=== PATIENT | female | born 1960 | race Caucasian/White ===

== ENCOUNTER 2018-12-01 16:29 | Emergency (ER) | payer BC, OTHER ==
[~2018-12-01] VITALS: Ht 157.5 cm; Wt 87.1 kg
--- OUTSIDE RECORDS SUMMARY | 2018-12-01 16:32 | XMS REPORT | Encounter Summary ---
Author Organization Unknown Address [address] [place] [address] Phone [phone] Care Team Providers Care Clinical Nursing Instructor Name Role Phone Bianca Witt 3 [phone] Reason for Visit Medical Complaint Instructions 1. Urinary tract infectious disease urinalysis, dipstick cefuroxime axetil 500 mg tablet phenazopyridine 200 mg tablet culture, urine Discussion Note follow up with PCP if symptoms continue or worsen Patient educational handouts: No information available. Plan of Care Reminders Provider Appointments None recorded. Lab Urinalysis, Dipstick 02/17/2017 [facility] Culture, Urine 02/17/2017 [facility] Referral None recorded. Procedures None recorded. Surgeries None recorded. Imaging None recorded. Medications Name Start Date acetaminophen 300 mg-codeine 30 mg tablet acetaminophen 300 mg-codeine 60 mg tablet TK 1 TO 2 TS PO Q 4 H PRN P. Advil alprazolam 0.25 mg tablet atorvastatin 10 mg tablet TK 1 T PO ONCE A DAY azithromycin 500 mg tablet TK 1 T PO QD Benicar 20 mg tablet Benicar 40 mg tablet TK 1 T PO QD bisoprolol fumarate bisoprolol fumarate 5 mg tablet TK ONE T PO QAM AND 2 TS HS carisoprodol 350 mg tablet TK 1 T PO TID PRN cefuroxime axetil 500 mg tablet Take 1 tablet every 12 hours by oral route for 7 days. chlorhexidine gluconate 0.12 % mouthwash RINSE 1/2 OUNCE FOR 30 SECONDS IN THE MORNING RINSE 1/2 OUNCE FOR 30 SECONDS IN THE EVENING ciprofloxacin 500 mg tablet clindamycin 300 mg capsule clonidine HCl 0.1 mg tablet TK 1 T PO Q 4 H PRN Cortisporin-TC 3.3 mg-3 mg-10 mg-0.5 mg/mL ear drops,suspension dicyclomine 20 mg tablet etodolac 500 mg tablet fluconazole 150 mg tablet fluticasone 50 mcg/actuation nasal spray,suspension hydrocodone 5 mg-acetaminophen 325 mg tablet TK 1 T PO Q 4 H PRN P hydrocodone 7.5 mg-acetaminophen 325 mg tablet TK 1 T PO Q 4 H PRN P hyoscyamine 0.125 mg sublingual tablet ibuprofen 800 mg tablet ketoconazole 2 % topical cream ANAID TO IRRITATED SKIN BID UNTIL RESOLVED levothyroxine 50 mcg tablet TK 1 T PO D Lidocaine Viscous 2 % mucosal solution U 2 KRYSTIAN TO RINSE AROUND ORAL CAVITY PRN TO RELIEVE PAIN SPIT OUT Lipitor meloxicam 15 mg tablet TK 1 T PO D methylprednisolone 4 mg tablet methylprednisolone 4 mg tablets in a dose pack TK UTD metronidazole 250 mg tablet TK 1 T PO TID metronidazole 500 mg tablet TK 1 T PO TID mupirocin 2 % topical ointment ANAID TO AREAS TID UTD TILL RESOLVES Nexium Nexium 40 mg capsule,delayed release TK ONE C PO ONCE A DAY. nitrofurantoin monohydrate/macrocrystals 100 mg capsule TK 1 C PO BID Q TWELVE H ondansetron 4 mg disintegrating tablet ondansetron 8 mg disintegrating tablet DIS ONE T PO Q 8 H PRN FOR NAUSEA phenazopyridine 100 mg tablet TK 2 TS PO TID FOR 3 DAYS PRN phenazopyridine 200 mg tablet Take 1 tablet 3 times a day by oral route as needed. sertraline 50 mg tablet Suprep Bowel Prep Kit 17.5 gram-3.13 gram-1.6 gram oral solution Synthroid terconazole 0.8 % vaginal cream tramadol 50 mg tablet TK 1 T PO Q 4 H PRN P FOR MILD TO MODERATE PAIN Vicodin 5 mg-300 mg tablet TK 1 T PO Q 4 H PRF PAIN zolpidem 10 mg tablet TK 1 T PO ONCE D HS Medications Administered None recorded. Vitals Height Weight BMI Blood Pressure 5 ft 2 in 186 lbs 34 130/80 Lab Results Date Name Specimen Result Interpretation Description Value Range Status Address Urinalysis, Dipstick Color : Yellow [facility]: [address] [place] [address] Clarity : Cloudy [facility]: [address] [place] [address] Leukocytes : Large [facility]: [address] [place] [address] Nitrites : Negative [facility]: [address] [place] [address] Urobilinogen : Normal [facility]: [address] [place] [address] Protein : Trace [facility]: [address] [place] [address] Ph : [phone] [facility]: [address] [place] [address] Blood : Hemolyzed Trace [facility]: [facility] Specific [place] : 1.005 [facility]: [facility] Ketones : Negative [facility]: [facility] Bilirubin : Negative [facility]: [facility] Glucose Negative [facility]: [facility] Allergies Code Code System Name Reaction Severity Onset Penicillins Anaphylaxis Problems Name Status Onset Date Source Dysfunction of Eustachian Tube Active Encounter Acute Sinusitis Active Encounter Acute Upper Respiratory Infection Active Encounter Allergic Rhinitis Active Encounter Urinary Tract Infectious Disease Active Encounter Right Upper Quadrant Pain Active Encounter Procedures Date Name Performed by 10/28/1989 Delivery Information not available Vaccine List None recorded. Social History Smoking Status Never Smoker Past Encounters 02/17/2017 Urinary Tract Infectious Disease Willie Camp PA-C: [address] [place] [address], Ph. History of Present Illness [id number] Reported By: Patient HPI: Quality: burning. Severity: worsening, moderate. Duration: constant. Onset/Timing: worse. Context: not sexually active, no known exposure to STD, no prior history of STDs, denies possible . Associated Symptoms: no fever/chills, no flank pain, no jaundice, no blood in the urine, no pain during urination, no vaginal discharge, no blisters on genitals, no rash on genitals, no muscle aches, no headache, burning sensation during urination, urgency Review of Systems:ROS as noted in the HPI Review of Systems Basic Reported By: Patient Physical Exam Adult Basic, Adult Female Complete Reported By: Patient Constitutional: General Appearance: healthy-appearing, well-nourished, well-developed. Level of Distress: NAD. Ambulation: ambulating normally Psychiatric: Mental Status: active and alert. Orientation: to time, to place, to person Abdomen: Bowel Sounds: normal. Inspection and Palpation: soft, non-distended, no tenderness, no guarding, no rebound tenderness, no masses, no CVA tenderness. Liver: non-tender, no hepatomegaly. Spleen: non-tender, no splenomegaly. Hernia: none palpable
--- OUTSIDE RECORDS SUMMARY | 2018-12-01 16:32 | XMS REPORT | Continuity of Care Document ---
Author Author [facility] Interface Address Unknown Phone Unavailable Problems Problem Status Onset Date Classification Date Reported Comments Source Urinary tract infectious disease 02/17/2017 Diagnosis 02/17/2017 [facility] Dysfunction of Eustachian Tube Problem 02/17/2017 [facility] Acute Sinusitis Problem 02/17/2017 [facility] Acute Upper Respiratory Infection Problem 02/17/2017 [facility] Allergic Rhinitis Problem 02/17/2017 [facility] Urinary Tract Infectious Disease Problem 02/17/2017 [facility] Right Upper Quadrant Pain Problem 02/17/2017 [facility] Medications Medication Details Route Status Patient Instructions Ordering Provider Order Date Source Acetaminophen 300 MG / Codeine Phosphate 30 MG Oral Tablet acetaminophen 300 mg-codeine 30 mg tablet Active [facility] Acetaminophen 300 MG / Codeine Phosphate 60 MG Oral Tablet acetaminophen 300 mg-codeine 60 mg tablet TK 1 TO 2 TS PO Q 4 H PRN P. Active [facility] Advil Advil Active [facility] Alprazolam 0.25 MG Oral Tablet alprazolam 0.25 mg tablet Active [facility] atorvastatin 10 MG Oral Tablet atorvastatin 10 mg tablet TK 1 T PO ONCE A DAY Active [facility] Azithromycin 500 MG Oral Tablet azithromycin 500 mg tablet TK 1 T PO QD Active [facility] Olmesartan medoxomil 20 MG Oral Tablet [Benicar] Benicar 20 mg tablet Active [facility] Olmesartan medoxomil 40 MG Oral Tablet [Benicar] Benicar 40 mg tablet TK 1 T PO QD Active [facility] Zebeta bisoprolol fumarate Active [facility] Bisoprolol Fumarate 5 MG Oral Tablet bisoprolol fumarate 5 mg tablet TK ONE T PO QAM AND 2 TS HS Active [facility] Carisoprodol 350 MG Oral Tablet carisoprodol 350 mg tablet TK 1 T PO TID PRN Active [facility] Cefuroxime 500 MG Oral Tablet cefuroxime axetil 500 mg tablet Take 1 tablet every 12 hours by oral route for 7 days. Active [facility] chlorhexidine gluconate 1.2 MG/ML Mouthwash chlorhexidine gluconate 0.12 % mouthwash RINSE 1/2 OUNCE FOR 30 SECONDS IN THE MORNING RINSE 1/2 OUNCE FOR 30 SECONDS IN THE EVENING Active [facility] Ciprofloxacin 500 MG Oral Tablet ciprofloxacin 500 mg tablet Active [facility] Clindamycin 300 MG Oral Capsule clindamycin 300 mg capsule Active [facility] Clonidine Hydrochloride 0.1 MG Oral Tablet clonidine HCl 0.1 mg tablet TK 1 T PO Q 4 H PRN Active [facility] Colistin 3 MG/ML / Hydrocortisone 10 MG/ML / Neomycin 3.3 MG/ML / thonzonium bromide 0.5 MG/ML Otic Suspension [Cortisporin-TC] Cortisporin- TC 3.3 mg-3 mg-10 mg-0.5 mg/mL ear drops,suspension Active [facility] Dicyclomine Hydrochloride 20 MG Oral Tablet dicyclomine 20 mg tablet Active [facility] Etodolac 500 MG Oral Tablet etodolac 500 mg tablet Active [facility] Fluconazole 150 MG Oral Tablet fluconazole 150 mg tablet Active [facility] Fluticasone propionate 0.05 MG/ACTUAT Metered Dose Nasal Basye fluticasone 50 mcg/actuation nasal spray,suspension Active [facility] Acetaminophen 325 MG / Hydrocodone Bitartrate 5 MG Oral Tablet hydrocodone 5 mg-acetaminophen 325 mg tablet TK 1 T PO Q 4 H PRN P Active [facility] Acetaminophen 325 MG / Hydrocodone Bitartrate 7.5 MG Oral Tablet hydrocodone 7.5 mg-acetaminophen 325 mg tablet TK 1 T PO Q 4 H PRN P Active [facility] Hyoscyamine Sulfate 0.125 MG Sublingual Tablet hyoscyamine 0.125 mg sublingual tablet Active [facility] Ibuprofen 800 MG Oral Tablet ibuprofen 800 mg tablet Active [facility] Ketoconazole 20 MG/ML Topical Cream ketoconazole 2 % topical cream ANAID TO IRRITATED SKIN BID UNTIL RESOLVED Active [facility] Levothyroxine Sodium 0.05 MG Oral Tablet levothyroxine 50 mcg tablet TK 1 T PO D Active [facility] Lidocaine Hydrochloride 20 MG/ML Mucous Membrane Topical Solution Lidocaine Viscous 2 % mucosal solution U 2 KRYSTIAN TO RINSE AROUND ORAL CAVITY PRN TO RELIEVE PAIN SPIT OUT Active [facility] Lipitor Lipitor Active [facility] meloxicam 15 MG Oral Tablet meloxicam 15 mg tablet TK 1 T PO D Active [facility] Methylprednisolone 4 MG Oral Tablet methylprednisolone 4 mg tablet Active [facility] methylprednisolone 4 mg tablets in a dose pack methylprednisolone 4 mg tablets in a dose pack TK UTD Active [facility] Metronidazole 250 MG Oral Tablet metronidazole 250 mg tablet TK 1 T PO TID Active [facility] Metronidazole 500 MG Oral Tablet metronidazole 500 mg tablet TK 1 T PO TID Active [facility] Mupirocin 0.02 MG/MG Topical Ointment mupirocin 2 % topical ointment ANAID TO AREAS TID UTD TILL RESOLVES Active [facility] Nexium Nexium Active [facility] Esomeprazole 40 MG Delayed Release Oral Capsule [Nexium] Nexium 40 mg capsule,delayed release TK ONE C PO ONCE A DAY. Active [facility] NITROFURANTOIN, MACROCRYSTALS 25 MG / Nitrofurantoin, Monohydrate 75 MG Oral Capsule nitrofurantoin monohydrate/macrocrystals 100 mg capsule TK 1 C PO BID Q TWELVE H Active [facility] Ondansetron 4 MG Disintegrating Oral Tablet ondansetron 4 mg disintegrating tablet Active [facility] Ondansetron 8 MG Disintegrating Oral Tablet ondansetron 8 mg disintegrating tablet DIS ONE T PO Q 8 H PRN FOR NAUSEA Active [facility] Phenazopyridine hydrochloride 100 MG Oral Tablet phenazopyridine 100 mg tablet TK 2 TS PO TID FOR 3 DAYS PRN Active [facility] Phenazopyridine hydrochloride 200 MG Oral Tablet phenazopyridine 200 mg tablet Take 1 tablet 3 times a day by oral route as needed. Active [facility] Sertraline 50 MG Oral Tablet sertraline 50 mg tablet Active [facility] Suprep Bowel Prep Kit 17.5 gram-3.13 gram-1.6 gram oral solution Suprep Bowel Prep Kit 17.5 gram-3.13 gram-1.6 gram oral solution Active [facility] Synthroid Synthroid Active [facility] terconazole 8 MG/ML Vaginal Cream terconazole 0.8 % vaginal cream Active [facility] tramadol hydrochloride 50 MG Oral Tablet tramadol 50 mg tablet TK 1 T PO Q 4 H PRN P FOR MILD TO MODERATE PAIN Active [facility] Acetaminophen 300 MG / Hydrocodone Bitartrate 5 MG Oral Tablet [Vicodin] Vicodin 5 mg-300 mg tablet TK 1 T PO Q 4 H PRF PAIN Active [facility] Zolpidem tartrate 10 MG Oral Tablet zolpidem 10 mg tablet TK 1 T PO ONCE D HS Active [facility] Allergies, Adverse Reactions, Alerts Substance Category Reaction Severity Reaction type Status Date Reported Comments Source Penicillins Anaphylaxis Allergy to substance 10/14/2008 [facility] Immunizations Immunization Date Given Site Status Last Updated Comments Source Results Order Name Results Value Reference Range Date Interpretation Comments Source Urinalysis macro (dipstick) panel - Urine COLOR : Yellow 02/17/2017 [facility] Urinalysis macro (dipstick) panel - Urine CLARITY : Cloudy 02/17/2017 [facility] Urinalysis macro (dipstick) panel - Urine LEUKOCYTES : Large 02/17/2017 [facility] Urinalysis macro (dipstick) panel - Urine NITRITES : Negative 02/17/2017 [facility] Urinalysis macro (dipstick) panel - Urine UROBILINOGEN : Normal 02/17/2017 [facility] Urinalysis macro (dipstick) panel - Urine PROTEIN : Trace 02/17/2017 [facility] Urinalysis macro (dipstick) panel - Urine pH : 6.0 02/17/2017 [facility] Urinalysis macro (dipstick) panel - Urine BLOOD : Hemolyzed Trace 02/17/2017 [facility] Urinalysis macro (dipstick) panel - Urine SPECIFIC GRAVITY : 1.005 02/17/2017 [facility] Urinalysis macro (dipstick) panel - Urine KETONES : Negative 02/17/2017 [facility] Urinalysis macro (dipstick) panel - Urine BILIRUBIN : Negative 02/17/2017 [facility] Urinalysis macro (dipstick) panel - Urine GLUCOSE Negative 02/17/2017 [facility] Vital Signs Vital Sign Value Date Comments Source Diastolic (mm Hg) 80 02/17/2017 [facility] Height 62 02/17/2017 [facility] Systolic (mm Hg) 130 02/17/2017 [facility] Weight 186 02/17/2017 [facility] Encounters Location Location Details Encounter Type Encounter Number Reason For Visit Attending Provider ADM Date DC Date Status Source [place] - [facility] - [id number] SERVANDO RayaC: [address] [place] [address], Ph. [id number] Willie Camp 02/17/2017 [facility] Procedures Procedure Code Date Perfomer Comments Source Delivery 10/28/1989 [facility]
--- OUTSIDE RECORDS SUMMARY | 2018-12-01 16:32 | XMS REPORT | Clinical Summary ---
Author Author [facility] Organization [place] [facility] Address Unknown Phone Unavailable Care Team Providers Care Liquor Bridge Operator Helper Name Role Phone Olga Bowden PCP Allergies Not on File Medications End Date Status Medication Sig Dispensed Refills Start Date Active diclofenac (VOLTAREN) 1 % Apply 100 g 1 gelIndications: Chronic topically 2 8 pain of right knee, (two) times a Primary osteoarthritis of day. right knee Active Problems Not on file Encounters Care Team Description Date Type Specialty Benjie Barron II, MD Chronic pain of right knee (Primary Dx); Primary osteoarthritis of right knee 10/10/2018 Office Visit Orthopedic Surgery after 11/30/2017 Social History Date Tobacco Use Types Packs/Day Years Used Never Smoker Smokeless Tobacco: Never Used Sex Assigned at Date Recorded Not on file Industry Job Start Date Occupation Not on file Not on file Not on file Travel End Travel History Travel Start No recent travel history available. Last Filed Vital Signs Time Taken Vital Sign Reading - Blood Pressure - - Pulse - - Temperature - - Respiratory Rate - - Oxygen Saturation - - Inhaled Oxygen - Concentration 10/10/2018 10:47 AM OFFICE NURSE Weight 87.5 kg (193 lb) 10/10/2018 10:47 AM OFFICE NURSE Height 157.5 cm (5' 2") 10/10/2018 10:47 AM OFFICE NURSE Body Mass Index 35.3 Plan of Treatment Health Maintenance Due Date Last Done Comments CERVICAL CANCER SCREENING 1979 BREAST CANCER SCREENING 2008 COLON CANCER SCREENING 2008 SHINGLES VACCINES (1 of 2008 2) INFLUENZA VACCINE 05/28/2018 07/30/2013 Results Not on fileafter 11/30/2017 Insurance Payer Benefit Subscriber ID Type Phone Address Plan / Group Protective Systems [facility] xxxxxxxxxxxx Exchange EXCHANGE [employer] Advance Directives Patient has advance care planning documents on file. For more information, yong benjamin contact: Conrado Hatch [address] [place] [address]
--- OUTSIDE RECORDS SUMMARY | 2018-12-01 16:32 | XMS REPORT ---
Author Author [facility] Address Unknown Phone Unavailable Care Team Providers Care Wireless Network Engineer Name Role Phone Unavailable Unavailable Problems This patient has no known problems. Allergies, Adverse Reactions, Alerts This patient has no known allergies or adverse reactions. Medications This patient has no known medications.
[2018-12-01] MEDS ORDERED: LEVOFLOXACIN 500 MG TAB PO SCH (19:30)
== END 2018-12-01 21:45 | disposition other institution (70) ==
LOC: FSED 16:29
DX: R53.1 Weakness (principal); K52.9 Noninfective gastroenteritis and colitis, unspecified; N30.90 Cystitis, unspecified without hematuria; E87.1 Hypo-osmolality and hyponatremia
CPT/HCPCS: 80053; 80076; 81003; 84484; 85025; 93005; 99284